=== PATIENT | female | born 2000 | race Caucasian/White ===

== ENCOUNTER 2020-06-24 16:28 | Emergency (ER) | payer OTHER | END 2020-06-24 17:59 | disposition home or self-care (01) | LOC: JVIRT 16:28 | DX: Z03.818 Encounter for observation for suspected exposure to other biological agents ruled out (principal) | CPT/HCPCS: C9803; Q3014-GT; U0003 ==

== ENCOUNTER 2020-07-03 11:19 | Emergency (ER) | payer OTHER | END 2020-07-03 12:25 | disposition home or self-care (01) | LOC: JVIRT 11:19 | DX: Z03.818 Encounter for observation for suspected exposure to other biological agents ruled out (principal) | CPT/HCPCS: C9803; G2012-GT; U0003 ==

== ENCOUNTER 2022-09-01 21:00 | Emergency (ER) | payer OTHER ==
[2022-09-01 21:24] VITALS: BP 110/79; PULSE 82; RESP 16; TEMP 98.3; BMI 28.3
[2022-09-01] MEDS ORDERED: ALBUTEROL SO4 2.5/IPRATROPIUM 0.5 INH SOL 3 ML VIAL.NEB. NEB ONE ×2 (21:28→21:30)
[2022-09-01 21:47] LABS: HCG,QUALITATIVE URINE Negative
[2022-09-01] MEDS ORDERED: IBUPROFEN 600 MG TABLET (FP) PO ONE ×2 (21:54→21:56)
[2022-09-01 22:06] LABS: ALBUMIN 3.8 g/dl (3.4-5.0); BILIRUBIN,TOTAL 0.3 mg/dl (0.2-1); CALCIUM 9.2 mg/dl (8.5-10); CREATININE 0.5 mg/dl (0.55-1.3)
[2022-09-01 22:08] LABS: HEMATOCRIT 36.7 % (32.4-45.2); HEMOGLOBIN 12.4 G/dL (10.7-15.3); MCH 30.9 pg (25.7-33.7); MCHC 33.9 g/dl (32.0-36.0); MEAN CELL VOLUME 91.2 fl (80-96); MEAN PLT VOLUME 9.5 fl (7.5-11.1); PLATELET COUNT 245.8 10^3/uL (134-434); RBC 4.02 10^6/uL (3.60-5.2); WHITE BLOOD COUNT 10.2 10^3/uL (4.0-10.8)
[2022-09-01 22:16] LABS: EPITHELIAL CELLS FEW /hpf
== END 2022-09-01 22:52 | disposition home or self-care (01) ==
LOC: FER 21:00
PROC: 3E0F7GC Introduction of Other Therapeutic Substance into Respiratory Tract, Via Natural or Artificial Opening (ICD-10-PCS; principal; 2022-09-01)
DX: R42 Dizziness and giddiness (principal); R11.10 Vomiting, unspecified
CPT/HCPCS: 36415; 80053; 81003; 81015; 84703; 85027; 99283-25

== ENCOUNTER 2023-01-12 19:36 | Emergency (ER) | payer OTHER ==
[2023-01-12 19:46] VITALS: BP 108/74; PULSE 82; RESP 16; TEMP 98.7; BMI 29.2
== END 2023-01-12 19:58 | disposition home or self-care (01) ==
LOC: FER 19:36
DX: R05.9 Cough, unspecified (principal); R09.89 Other specified symptoms and signs involving the circulatory and respiratory systems; R07.0 Pain in throat; R09.3 Abnormal sputum; R06.02 Shortness of breath; R06.2 Wheezing; J40 Bronchitis, not specified as acute or chronic
CPT/HCPCS: 99283-25